=== PATIENT | male | born 1975 | race Two or more races ===

== ENCOUNTER 2020-07-24 11:47 | Inpatient (IN) | payer MEDICAID, OTHER ==
[~2020-07-24] VITALS: Ht 170.2 cm; Wt 113.2 kg
[2020-07-24] MEDS ORDERED: ASCORBIC ACID 500 MG TAB PO ONE (12:00)
[2020-07-24] MEDS ORDERED: CHOLECALCIFEROL (VITD3) 2,000 UNIT CAP/TAB PO ONE (12:00)
[2020-07-24] MEDS ORDERED: methylPREDNISolone SOD SUCC 125 MG/2 ML VL IV ONE (12:00)
[2020-07-24] MEDS ORDERED: AZITHROMYCIN 500MG/ 250ML 250 ML IV ONE (12:00)
[2020-07-24] MEDS ORDERED: ZINC SULFATE 220mg CAP or TAB PO ONE (12:00)
[2020-07-24] MEDS ORDERED: ACETAMINOPHEN 325 MG TAB PO ONE (12:30)
[2020-07-24 12:40] LABS: Basophils # (auto) 0 10 ^3/uL (0-0.2); Basophils % (auto) 0.2 % (0.0-2.0); Eosinophils # (auto) 0 10 ^3/uL (0-0.8); Eosinophils % (auto) 0.6 % (0.0-7.0); Hematocrit 41.8 % (41.0-53.0); Hemoglobin 14.8 g/dL (13.5-17.5); Lymphocytes # (auto) 0.5 10 ^3/uL (0.4-5.4); Lymphocytes % (auto) 6.2 % (10.0-50.0); Mean Corpuscular Hemoglobin 29.1 pg (28.0-32.0); Mean Corpuscular Hgb Conc. 35.5 g/dL (32.0-36.0); Mean Corpuscular Volume 82.1 fL (80.0-100.0); Monocytes # (auto) 0.4 10 ^3/uL (0-1.3); Monocytes % (auto) 5.3 % (0.0-12.0); Neutrophils # (auto) 6.5 10 ^3/uL (1.6-8.6); Neutrophils % (auto) 87.7 % (37.0-80.0); Nucleated Red Blood Cells % 0.4 %; Platelet Count (auto) 148 10^3/uL (140-450); Red Blood Cells 5.09 10^6/uL (4.5-5.90); White Blood Cell 7.4 10^3/uL (4.4-10.8)
[2020-07-24 12:55] LABS: Albumin 2.8 g/dL (3.4-5.0); Calcium 8.2 mg/dL (8.5-10.1); Potassium 4.2 mmol/L (3.5-5.1)
[2020-07-24 13:03] LABS: BUN/Creatinine Ratio 12.4; Bilirubin, Total 1.6 mg/dL (0.2-1.0); CRP High Sensitivity 13.2 mg/dL (< 0.3); Total Protein 7.8 g/dL (6.4-8.2)
[2020-07-24] MEDS ORDERED: IOHEXOL 350 MG/ML 100ML IJ ONE (13:46)
[2020-07-24] MEDS ORDERED: ENOXAPARIN SOD 100 MG/1 ML SYRINGE SC ONE ×2 (14:00→15:25)
[2020-07-24] MEDS ORDERED: NITROGLYCERIN 0.4 MG SL TAB SL PRN (17:15)
[2020-07-24] MEDS ORDERED: LABETALOL HCL 5 MG/ML 4ML SYRINGE IV PRN (17:15)
[2020-07-24] MEDS ORDERED: ONDANSETRON HCL 4 MG/2 ML VIAL IV PRN (17:15)
[2020-07-24] MEDS ORDERED: VANCOMYCIN PER PHARMACY 0 MG IV SCH (17:15)
[2020-07-24] MEDS ORDERED: DOCUSATE CALCIUM 240 MG CAP PO PRN (17:15)
[2020-07-24] MEDS ORDERED: MORPHINE SULF INJ 2 MG/ML SYRINGE 1ML IV PRN ×2 (17:15)
[2020-07-24] MEDS ORDERED: LORazepam 0.5 MG TAB PO PRN (17:15)
[2020-07-24 17:31] LABS: Urine Bacteria NONE SEEN /hpf (None Seen); Urine Blood 1+ /uL (Negative); Urine Mucus FEW (None Seen); Urine WBC 1 /hpf (0 - 3)
[2020-07-24 17:41] LABS: Urine Specific Gravity > 1.050 (1.001-1.035)
[2020-07-24] MEDS: SODIUM CHLORIDE 0.9% 1,000 ML IV SCH ×2 (17:43→22:15)
[2020-07-24] MEDS: PIPERACILLIN-TAZOB 3.375GM 100 ML IV SCH (18:28)
[2020-07-24] MEDS: BUDESONIDE (INHALATION) 180 MCG IH IN SCH (18:47)
[2020-07-24] MEDS: ACETAMINOPHEN 500 MG TAB PO PRN (19:53)
[2020-07-24 21:00] VITALS: BP 111/70
[2020-07-24 22:00] VITALS: BP 111/70
[2020-07-24] MEDS: InsuLIN REG 1unit/0.01ml Soln (100units/ml) SC SCH ×2 (22:00→23:33)
[2020-07-24 22:02] VITALS: BP 124/70
[2020-07-24] MEDS: VANCOMYCIN 1GM/250ML 250 ML IV SCH (22:15)
[2020-07-24] MEDS: ENOXAPARIN SOD 40 MG/0.4 ML SYRINGE SC SCH (22:20)
[2020-07-24] MEDS: methylPREDNISolone SOD SUCC 125 MG/2 ML VL IV SCH (22:20)
[2020-07-24] MEDS: INSULIN LANTUS (GLARGINE) 1 /0.01ml (100units/ml) SC SCH (22:30)
[2020-07-24] MEDS ORDERED: DEXTROSE (50%) 50ML SYRG IV PRN (22:45)
[2020-07-25] VITALS (7 sets, daily range): BP systolic 104–121; BP diastolic 70–75
[2020-07-25] MEDS: PIPERACILLIN-TAZOB 3.375GM 100 ML IV SCH ×3 (00:27→12:25)
[2020-07-25] MEDS: SODIUM CHLORIDE 0.9% 1,000 ML IV SCH ×4 (03:15→18:17)
[2020-07-25] MEDS: InsuLIN REG 1unit/0.01ml Soln (100units/ml) SC SCH ×4 (06:31→22:07)
[2020-07-25] MEDS: ACCU-CHEK COMFORT CURVE STRIP VI SCH ×4 (06:31→22:05)
[2020-07-25] MEDS ORDERED: InsuLIN REG 1unit/0.01ml Soln (100units/ml) SC SCH (07:00)
[2020-07-25 07:20] LABS: Basophils # (auto) 0 10 ^3/uL (0-0.2); Basophils % (auto) 0.1 % (0.0-2.0); Eosinophils # (auto) 0 10 ^3/uL (0-0.8); Hematocrit 39.4 % (41.0-53.0); Hemoglobin 13.9 g/dL (13.5-17.5); Lymphocytes # (auto) 0.7 10 ^3/uL (0.4-5.4); Lymphocytes % (auto) 5.7 % (10.0-50.0); Mean Corpuscular Hemoglobin 28.9 pg (28.0-32.0); Mean Corpuscular Hgb Conc. 35.3 g/dL (32.0-36.0); Mean Corpuscular Volume 81.9 fL (80.0-100.0); Monocytes # (auto) 0.5 10 ^3/uL (0-1.3); Monocytes % (auto) 3.8 % (0.0-12.0); Neutrophils # (auto) 11.9 10 ^3/uL (1.6-8.6); Neutrophils % (auto) 90.4 % (37.0-80.0); Nucleated Red Blood Cells % 0.1 %; Platelet Count (auto) 142 10^3/uL (140-450); Red Blood Cells 4.82 10^6/uL (4.5-5.90); Red Cell Distribution Width 13.1 % (11.8-14.3); White Blood Cell 13.1 10^3/uL (4.4-10.8)
[2020-07-25 07:29] LABS: Albumin 2.6 g/dL (3.4-5.0); BUN/Creatinine Ratio 19.3; Calcium 8.4 mg/dL (8.5-10.1); Magnesium 2.3 mg/dL (1.6-2.6); Total Protein 7.6 g/dL (6.4-8.2)
[2020-07-25] MEDS: BUDESONIDE (INHALATION) 180 MCG IH IN SCH ×2 (07:40→19:22)
[2020-07-25] MEDS: ALBUTEROL SULF HFA 90MCG INH 200DOSE IN PRN ×2 (07:40→19:22)
[2020-07-25] MEDS: VANCOMYCIN 1GM/250ML 250 ML IV SCH (09:12)
[2020-07-25] MEDS: ENOXAPARIN SOD 40 MG/0.4 ML SYRINGE SC SCH ×2 (09:13→22:05)
[2020-07-25] MEDS: methylPREDNISolone SOD SUCC 125 MG/2 ML VL IV SCH (09:14)
[2020-07-25] MEDS: CHOLECALCIFEROL (VITD3) 2,000 UNIT CAP/TAB PO SCH (09:14)
[2020-07-25] MEDS: ZINC SULFATE 220mg CAP or TAB PO SCH (09:15)
[2020-07-25] MEDS: PANTOPRAZOLE 40 MG TAB PO SCH (09:15)
[2020-07-25] MEDS: ASCORBIC ACID 1,000 MG TAB PO SCH (09:15)
[2020-07-25] MEDS: ACETAMINOPHEN 500 MG TAB PO PRN (18:04)
[2020-07-25] MEDS: INSULIN LANTUS (GLARGINE) 1 /0.01ml (100units/ml) SC SCH (22:08)
[2020-07-26] MEDS: SODIUM CHLORIDE 0.9% 1,000 ML IV SCH ×4 (00:07→15:02)
[2020-07-26 05:00] VITALS: BP 110/73
[2020-07-26] MEDS: ACCU-CHEK COMFORT CURVE STRIP VI SCH ×4 (06:25→22:24)
[2020-07-26] MEDS: InsuLIN REG 1unit/0.01ml Soln (100units/ml) SC SCH ×4 (06:36→22:26)
[2020-07-26] MEDS: ACETAMINOPHEN 500 MG TAB PO PRN ×3 (06:39→20:35)
[2020-07-26 07:19] LABS: Basophils # (auto) 0 10 ^3/uL (0-0.2); Basophils % (auto) 0.3 % (0.0-2.0); Eosinophils # (auto) 0 10 ^3/uL (0-0.8); Hematocrit 35.7 % (41.0-53.0); Hemoglobin 12.6 g/dL (13.5-17.5); Lymphocytes # (auto) 0.6 10 ^3/uL (0.4-5.4); Lymphocytes % (auto) 4.7 % (10.0-50.0); Mean Corpuscular Hgb Conc. 35.4 g/dL (32.0-36.0); Monocytes # (auto) 0.5 10 ^3/uL (0-1.3); Monocytes % (auto) 4.5 % (0.0-12.0); Neutrophils % (auto) 90.5 % (37.0-80.0); Platelet Count (auto) 140 10^3/uL (140-450); Red Blood Cells 4.35 10^6/uL (4.5-5.90); Red Cell Distribution Width 13.3 % (11.8-14.3); White Blood Cell 12.2 10^3/uL (4.4-10.8)
[2020-07-26] MEDS: BUDESONIDE (INHALATION) 180 MCG IH IN SCH ×2 (07:20→18:36)
[2020-07-26 07:43] LABS: Potassium 3.9 mmol/L (3.5-5.1)
[2020-07-26 07:48] LABS: BUN/Creatinine Ratio 18.9; Calcium 8.5 mg/dL (8.5-10.1)
[2020-07-26] MEDS: CHOLECALCIFEROL (VITD3) 2,000 UNIT CAP/TAB PO SCH (08:28)
[2020-07-26] MEDS: ZINC SULFATE 220mg CAP or TAB PO SCH (08:28)
[2020-07-26] MEDS: ASCORBIC ACID 1,000 MG TAB PO SCH (08:28)
[2020-07-26] MEDS: PANTOPRAZOLE 40 MG TAB PO SCH (08:28)
[2020-07-26] MEDS: ENOXAPARIN SOD 40 MG/0.4 ML SYRINGE SC SCH ×2 (08:29→22:24)
[2020-07-26 08:56] VITALS: BP 100/67
[2020-07-26] MEDS ORDERED: cefTRIAXone 1GM/50ML D5W 50 ML IV SCH (09:00)
[2020-07-26] MEDS: AZITHROMYCIN 500MG/ 250ML 250 ML IV SCH (09:40)
[2020-07-26] MEDS ORDERED: THROAT LOZENGES(CEPASTAT) MT PRN (11:45)
[2020-07-26 13:00] VITALS: BP 122/85
[2020-07-26 17:00] VITALS: BP 99/60
[2020-07-26] MEDS: PIPERACILLIN-TAZOB 3.375GM 100 ML IV SCH (18:22)
[2020-07-26 22:00] VITALS: BP 115/75
[2020-07-26] MEDS: INSULIN LANTUS (GLARGINE) 1 /0.01ml (100units/ml) SC SCH (22:25)
[2020-07-27] MEDS: PIPERACILLIN-TAZOB 3.375GM 100 ML IV SCH ×5 (00:07→23:39)
[2020-07-27] MEDS: ACETAMINOPHEN 500 MG TAB PO PRN ×4 (04:11→21:14)
[2020-07-27 05:17] VITALS: BP 122/76
[2020-07-27] MEDS: ACCU-CHEK COMFORT CURVE STRIP VI SCH ×4 (06:31→21:11)
[2020-07-27] MEDS: InsuLIN REG 1unit/0.01ml Soln (100units/ml) SC SCH ×4 (06:34→21:13)
[2020-07-27] MEDS: ALBUTEROL SULF HFA 90MCG INH 200DOSE IN PRN (06:54)
[2020-07-27] MEDS: BUDESONIDE (INHALATION) 180 MCG IH IN SCH ×2 (06:54→21:56)
[2020-07-27 09:00] VITALS: BP 120/76
[2020-07-27] MEDS: CHOLECALCIFEROL (VITD3) 2,000 UNIT CAP/TAB PO SCH (09:44)
[2020-07-27] MEDS: AZITHROMYCIN 500MG/ 250ML 250 ML IV SCH (09:44)
[2020-07-27] MEDS: ZINC SULFATE 220mg CAP or TAB PO SCH (09:44)
[2020-07-27] MEDS: ASCORBIC ACID 1,000 MG TAB PO SCH (09:44)
[2020-07-27] MEDS: PANTOPRAZOLE 40 MG TAB PO SCH (09:44)
[2020-07-27] MEDS: ENOXAPARIN SOD 40 MG/0.4 ML SYRINGE SC SCH ×2 (09:45→21:11)
[2020-07-27 13:00] VITALS: BP 118/77
[2020-07-27 17:00] VITALS: BP 107/70
[2020-07-27] MEDS: INSULIN LANTUS (GLARGINE) 1 /0.01ml (100units/ml) SC SCH (21:12)
[2020-07-27 21:39] VITALS: BP 127/85
[2020-07-28] MEDS: ACETAMINOPHEN 500 MG TAB PO PRN ×2 (04:25→22:52)
[2020-07-28 05:20] VITALS: BP 128/85
[2020-07-28] MEDS: PIPERACILLIN-TAZOB 3.375GM 100 ML IV SCH ×3 (05:40→19:00)
[2020-07-28] MEDS: ACCU-CHEK COMFORT CURVE STRIP VI SCH ×4 (06:32→21:55)
[2020-07-28] MEDS: InsuLIN REG 1unit/0.01ml Soln (100units/ml) SC SCH ×4 (06:37→22:03)
[2020-07-28] MEDS: BUDESONIDE (INHALATION) 180 MCG IH IN SCH ×2 (07:10→20:00)
[2020-07-28 09:00] VITALS: BP 129/77
[2020-07-28 10:07] VITALS: BP 129/77
[2020-07-28] MEDS: AZITHROMYCIN 500MG/ 250ML 250 ML IV SCH (10:47)
[2020-07-28] MEDS: ENOXAPARIN SOD 40 MG/0.4 ML SYRINGE SC SCH ×2 (10:47→21:45)
[2020-07-28] MEDS: ZINC SULFATE 220mg CAP or TAB PO SCH (10:47)
[2020-07-28] MEDS: PANTOPRAZOLE 40 MG TAB PO SCH (10:47)
[2020-07-28] MEDS: ASCORBIC ACID 1,000 MG TAB PO SCH (10:48)
[2020-07-28] MEDS: CHOLECALCIFEROL (VITD3) 2,000 UNIT CAP/TAB PO SCH (10:48)
[2020-07-28 13:00] VITALS: BP 110/76
[2020-07-28] MEDS ORDERED: REMDESIVIR PER PHARMACY 0 ML IV SCH (13:15)
[2020-07-28] MEDS ORDERED: diphenhdrAMINE HCL 50 MG/1 ML VL IV PRN (13:15)
[2020-07-28] MEDS ORDERED: FLUTICASONE PROP NASAL SPR 0.05 % (50MCG) 16GM EACHNOSTRI ONE (13:45)
[2020-07-28] MEDS ORDERED: LORATADINE 10 MG TAB PO ONE (13:45)
[2020-07-28] MEDS ORDERED: REMDESIVIR 200 MG in NS 210ml LOADING DOSE ADULT IV ONE (15:00)
[2020-07-28 17:00] VITALS: BP 122/83
[2020-07-28] MEDS: FLUTICASONE PROP NASAL SPR 0.05 % (50MCG) 16GM EACHNOSTRI SCH (21:45)
[2020-07-28 22:00] VITALS: BP 134/79
[2020-07-28] MEDS: INSULIN LANTUS (GLARGINE) 1 /0.01ml (100units/ml) SC SCH (22:02)
[2020-07-29] VITALS (10 sets, daily range): BP systolic 110–134; BP diastolic 64–89
[2020-07-29] MEDS: PIPERACILLIN-TAZOB 3.375GM 100 ML IV SCH ×5 (01:38→23:32)
[2020-07-29] MEDS: ACCU-CHEK COMFORT CURVE STRIP VI SCH ×4 (06:04→21:24)
[2020-07-29] MEDS: InsuLIN REG 1unit/0.01ml Soln (100units/ml) SC SCH ×4 (06:05→21:25)
[2020-07-29] MEDS: BUDESONIDE (INHALATION) 180 MCG IH IN SCH ×3 (06:39→19:18)
[2020-07-29 07:02] LABS: Potassium 3.2 mmol/L (3.5-5.1)
[2020-07-29 07:11] LABS: Albumin 1.9 g/dL (3.4-5.0); Bilirubin, Total 0.9 mg/dL (0.2-1.0); Calcium 8.3 mg/dL (8.5-10.1); Total Protein 6.4 g/dL (6.4-8.2)
[2020-07-29] MEDS: ALBUTEROL SULF HFA 90MCG INH 200DOSE IN PRN (09:03)
[2020-07-29] MEDS: ZINC SULFATE 220mg CAP or TAB PO SCH (09:18)
[2020-07-29] MEDS: PANTOPRAZOLE 40 MG TAB PO SCH (09:18)
[2020-07-29] MEDS: ENOXAPARIN SOD 40 MG/0.4 ML SYRINGE SC SCH ×2 (09:18→21:13)
[2020-07-29] MEDS: ASCORBIC ACID 1,000 MG TAB PO SCH (09:19)
[2020-07-29] MEDS: AZITHROMYCIN 500MG/ 250ML 250 ML IV SCH (09:19)
[2020-07-29] MEDS: LORATADINE 10 MG TAB PO SCH (09:19)
[2020-07-29] MEDS: CHOLECALCIFEROL (VITD3) 2,000 UNIT CAP/TAB PO SCH (09:19)
[2020-07-29] MEDS ORDERED: POTASSIUM CHL 20 Meq TABLET PO ONE (09:30)
[2020-07-29] MEDS: FLUTICASONE PROP NASAL SPR 0.05 % (50MCG) 16GM EACHNOSTRI SCH ×2 (10:00→21:12)
[2020-07-29] MEDS: REMDESIVIR 100mg 100 MG in SODIUM CHL 0.9% 230 ML IV SCH (16:00)
[2020-07-29] MEDS: INSULIN LANTUS (GLARGINE) 1 /0.01ml (100units/ml) SC SCH (21:25)
[2020-07-30 05:00] VITALS: BP 120/61
[2020-07-30] MEDS: PIPERACILLIN-TAZOB 3.375GM 100 ML IV SCH ×2 (05:59→11:32)
[2020-07-30] MEDS: ACCU-CHEK COMFORT CURVE STRIP VI SCH ×3 (05:59→17:00)
[2020-07-30] MEDS: InsuLIN REG 1unit/0.01ml Soln (100units/ml) SC SCH ×3 (05:59→17:00)
[2020-07-30 07:01] LABS: Potassium 3.6 mmol/L (3.5-5.1)
[2020-07-30 07:18] LABS: BUN/Creatinine Ratio 9.7; Bilirubin, Total 0.8 mg/dL (0.2-1.0)
[2020-07-30] MEDS: BUDESONIDE (INHALATION) 180 MCG IH IN SCH (07:34)
[2020-07-30 08:30] VITALS: BP 127/84
[2020-07-30] MEDS ORDERED: ALBUAER3 IN (09:17)
[2020-07-30] MEDS ORDERED: CHOL1CAP47 PO (09:17)
[2020-07-30] MEDS ORDERED: ASCO10003 PO (09:17)
[2020-07-30] MEDS: FLUTICASONE PROP NASAL SPR 0.05 % (50MCG) 16GM EACHNOSTRI SCH (10:32)
[2020-07-30] MEDS: ZINC SULFATE 220mg CAP or TAB PO SCH (10:32)
[2020-07-30] MEDS: ASCORBIC ACID 1,000 MG TAB PO SCH (10:33)
[2020-07-30] MEDS: LORATADINE 10 MG TAB PO SCH (10:33)
[2020-07-30] MEDS: PANTOPRAZOLE 40 MG TAB PO SCH (10:33)
[2020-07-30] MEDS: CHOLECALCIFEROL (VITD3) 2,000 UNIT CAP/TAB PO SCH (10:33)
[2020-07-30] MEDS: AZITHROMYCIN 500MG/ 250ML 250 ML IV SCH (10:33)
[2020-07-30] MEDS: ENOXAPARIN SOD 40 MG/0.4 ML SYRINGE SC SCH (10:34)
[2020-07-30 12:30] VITALS: BP 124/90
[2020-07-30] MEDS ORDERED: METF-370 PO (14:40)
[2020-07-30] MEDS ORDERED: AMOX-277 PO (14:40)
[2020-07-30] MEDS ORDERED: PANT40T PO (14:40)
[2020-07-30] MEDS ORDERED: LORA-154 PO (14:40)
[2020-07-30] MEDS ORDERED: ZINC220T6 PO (14:40)
[2020-07-30] MEDS ORDERED: DEX4T PO (14:40)
[2020-07-30] MEDS ORDERED: GLIP5TAB12 PO (14:40)
[2020-07-30] MEDS ORDERED: POTASSIUM CHL 10 Meq TABLET PO ONE (14:45)
[2020-07-30] MEDS ORDERED: AMOXICILLIN/CLAVUL 875 MG TAB PO ONE (14:45)
[2020-07-30] MEDS ORDERED: FUROSEMIDE 40 MG/4 ML VIAL IV ONE (14:45)
[2020-07-30] MEDS ORDERED: LISI2.5T47 PO (14:45)
[2020-07-30 16:30] VITALS: BP 139/88
[2020-07-30] MEDS: REMDESIVIR 100mg 100 MG in SODIUM CHL 0.9% 230 ML IV SCH (16:33)
[2020-07-30 16:56] VITALS: BP 119/72
== END 2020-07-30 18:17 | disposition home or self-care (01) | DRG 720 ==
LOC: ER 11:47 → EDBD 11:47 → TELE 11:48 → TELE-WESTW 20:10
PROVIDERS: ADMIT Family Medicine; ATTEND Internal Medicine
PROC: XW033E5 Introduction of Remdesivir Anti-infective into Peripheral Vein, Percutaneous Approach, New Technology Group 5 (ICD-10-PCS; 2020-07-28)
PROC: XW13325 Transfusion of Convalescent Plasma (Nonautologous) into Peripheral Vein, Percutaneous Approach, New Technology Group 5 (ICD-10-PCS; principal; 2020-07-29)
DX: A41.89 Other specified sepsis (principal); R65.20 Severe sepsis without septic shock; U07.1 COVID-19; J12.82 Pneumonia due to coronavirus disease 2019; E11.65 Type 2 diabetes mellitus with hyperglycemia; J03.90 Acute tonsillitis, unspecified; E87.1 Hypo-osmolality and hyponatremia; I10 Essential (primary) hypertension; E66.01 Morbid (severe) obesity due to excess calories; E11.21 Type 2 diabetes mellitus with diabetic nephropathy; J15.211 Pneumonia due to Methicillin susceptible Staphylococcus aureus; Z91.19 Patient's noncompliance with other medical treatment and regimen; J96.01 Acute respiratory failure with hypoxia; Z68.39 Body mass index [BMI] 39.0-39.9, adult; D89.839 Cytokine release syndrome, grade unspecified
CPT/HCPCS: 36415; 71045; 71275; 80048; 80053; 81001; 82306; 82728; 82962; 83036; 83605; 83615; 83735; 83880; 84443; 84484; 85025; 85379; 86141; 86850; 86900; 86901; 87040; 87070; 87077; 87186; 87205; 87426; 87804; 87880; 93005; 94640; 96361; 96365; 96367; 96375; 99291; G0378; J0696; J1815; J2405; J2543